=== PATIENT | male | born 1965 | race Caucasian/White ===

== ENCOUNTER → 2020-10-28 | Outpatient (REF) | payer SELFPAY ==
[2020-10-28 12:46] LABS: Potassium 5.6 mmol/L (3.5-5.1)
== END | disposition home or self-care (01) ==
LOC: LABSPEC 12:15
PROVIDERS: Visit Provider Internal Medicine Nephrology
DX: E87.5 Hyperkalemia (principal)
CPT/HCPCS: 84132

== ENCOUNTER 2021-08-14 06:49 | Emergency (ER) | payer MEDICAID, SELFPAY ==
[2021-08-14] VITALS (9 sets, daily range): BP systolic 110–192; BP diastolic 57–136; PULSE 86–104; RESP 16–26; TEMP 36.2; O2SAT 92–98; BMI 26.2
--- NOTE | 2021-08-14 06:53 | NURSING ---
NO OLD EKGS
--- NOTE | 2021-08-14 06:55 | CT_ITS ---
STUDY: CT BRAIN WITHOUT CONTRAST REASON FOR EXAM: Male, 56 years old. GCS 1, dilated pupils RADIATION DOSAGE (If Supplied By Facility): CTDIvol = ( 44.99 ) mGy, DLP = ( 796.11 ) mGycm TECHNIQUE: Transaxial CT imaging of the brain was performed without administration of intravenous contrast material. Individualized dose optimization techniques were used for this CT. COMPARISON: No relevant priors. FINDINGS: Normal soft tissue structures. Normal calvarium. Normal size ventricles and extra-axial spaces for the patient''s age. Normal white matter tracts of the cerebral hemispheres. Normal basal ganglia and thalami. Normal brainstem. Normal cerebellum. There is a large acute right-sided subdural hematoma measuring up to 2.0 cm thick surrounding the right frontal and parietal lobes with a small amount of associated subarachnoid hemorrhage. There is significant mass effect and edema of the right hemisphere as well as 2 cm of [id number] midline shift (subfalcine herniation). There are no findings of an acute ischemic infarction. Normal visualized paranasal sinuses. CT/Brain/Head without Contrast IMPRESSION: Large acute right-sided subdural hematoma with associated subarachnoid hemorrhage with mass effect on the right hemisphere and right to left midline shift (subfalcine herniation). N.B. : The above Results were Read Back by Tony White MD to Vernon Barroso MD, and understanding confirmed on 08/14/2021 08:03:11 (ET). Electronically Signed: Tony White MD at 8:04 EDT Tel , Service support ,
--- NOTE | 2021-08-14 06:55 | EKG12_ITS ---
Test Reason : UNRESPONSIVE Blood Pressure : / mmHG Vent. Rate : 090 BPM Atrial Rate : 090 BPM P-R Int : 152 ms QRS Dur : 102 ms QT Int : 348 ms P-R-T Axes : 034 107 -01 degrees QTc Int : 425 ms Sinus rhythm with occasional Premature ventricular complexes and Premature atrial complexes Otherwise normal ECG Confirmed by LAURO SERNA, MARYJO ([id number]), editor in chief CINDY VEGA ([id number]) on 08/20/2021 9:24:42 A M Referred By: LUCAS Confirmed By:LORETTA RESTREPO MD
--- NOTE | 2021-08-14 06:56 | RAD_ITS ---
STUDY: X-RAY CHEST REASON FOR EXAM: Male, 56 years old. Intubation TECHNIQUE: Single AP portable view of the chest. COMPARISON: None. FINDINGS: Endotracheal tube with the tip approximately 5 cm above the zina. Nasogastric tube with the tip below the diaphragm. The patchy alveolar opacities in both lungs consistent with bilateral pneumonia. There is no demonstrated pleural abnormality. There is moderate cardiac enlargement. Normal mediastinum and berna. Normal visualized pulmonary arteries. Normal visualized aortic arch and descending thoracic aorta. Normal visualized thoracic spine. Normal visualized ribs, clavicles, and shoulders. There is no demonstrated abnormality of the visualized soft tissue structures of the upper abdomen. RAD/Chest 1 View (Portable) IMPRESSION: 1. Endotracheal tube with the tip above the zina. 2. Nasogastric tube with the tip below the diaphragm. 3. Patchy bilateral pneumonia. 4. Cardiomegaly. Electronically Signed: Tony White MD at 7:48 EDT Tel , Service support ,
[2021-08-14] MEDS: Rocuronium Bromide 50 MG/5 ML Vial 78 MG IV (07:05)
[2021-08-14] MEDS: Etomidate 20 MG/10 ML Vial IV (07:05)
--- NOTE | 2021-08-14 07:07 | EKG12_ITS ---
Test Reason : UNRESPONSIVE Blood Pressure : / mmHG Vent. Rate : 114 BPM Atrial Rate : 114 BPM P-R Int : 150 ms QRS Dur : 100 ms QT Int : 326 ms P-R-T Axes : 062 106 010 degrees QTc Int : 449 ms Sinus tachycardia with frequent Premature ventricular complexes T wave abnormality, consider inferior ischemia Abnormal ECG Confirmed by LAURO SERNA, MARYJO ([id number]), editor producer CINDY VEGA ([id number]) on 08/20/2021 9:25:52 A M Referred By: LUCAS Confirmed By:LORETTA RESTREPO MD
--- NOTE | 2021-08-14 07:08 | EX.ED.DYSGE1 ---
HPI History of Present Illness Chief Complaint: Unresponsive Informant: EMS Limited: coma Onset/Context/Timing Onset: Hours Context: Sudden Onset Timing: Continuous Quality: Patient reported feeling anxious after heparin was pushed prior to dialysis Current Severity: Severe Maximum Severity: Severe Worsened by: Unknown Relieved by: Nothing Associated Symptoms Associated Symptoms: Patient arrived unresponsive. Narrative Narrative: Patient with end-stage renal disease on hemodialysis. Liver failure. He is a full code per paramedics. History is limited since he has altered sensorium. Prior similar symptoms: No Recent Illness/Hospitalization: No PFSH PFSH Medical History unable to obtain unable to obtain Allergy/AdvReac Type Severity Reaction Status Date / Time Iodinated Contrast Media AdvReac PT UNABLE Verified 08/14/21 07:02 [DYEE] TO RESPOND-NEEDS F/U Penicillins [PCN] AdvReac PT UNABLE Verified 08/14/21 07:03 TO RESPOND-NEEDS F/U prednisone AdvReac PT UNABLE Verified 08/14/21 07:02 TO RESPOND-NEEDS F/U Family History unable to obtain unable to obtain Surgical History unable to obtain unable to obtain Social History (Updated 08/14/21 @ 07:[address] Vernon Barroso MD) household members: none Smoking Status: Current every day smoker tobacco type: cigarettes ROS ROS ED Review of Systems ROS Unobtainable: due to mental status EXAM Physical Exam Const Vital Signs: 08/14/21 06:50 08/14/21 07:01 08/14/21 07:06 Temperature 97.2 F L Temperature Source Temporal Pulse Rate 94 86 Respiratory Rate 26 H Respiratory Effort Labored Accessory Muscle Use Respiratory Pattern Gasping Blood Pressure 174/123 H Blood Pressure Mean 140 Pulse Ox 96 98 Oxygen Delivery Method Room Air Ambu-Bag 08/14/21 07:10 08/14/21 07:49 08/14/21 08:07 Temperature Temperature Source Pulse Rate 104 H 99 Respiratory Rate 18 16 Respiratory Effort Respiratory Pattern Blood Pressure 192/136 H 157/93 H 149/81 H Blood Pressure Mean 154 114 103 Pulse Ox 92 94 Oxygen Delivery Method Ambu-Bag Ambu-Bag 08/14/21 08:18 Temperature Temperature Source Pulse Rate 101 H Respiratory Rate 20 H Respiratory Effort Respiratory Pattern Blood Pressure 141/72 H Blood Pressure Mean 95 Pulse Ox 94 Oxygen Delivery Method Mechanical Ventilator Positive well nourished and well developed General Appearance ED: well developed, pallor and other Patient appears jaundiced. HEENT Reports TM's clear and dry mucous membranes Tympanic Membrane ED: Yes TM's clear Mouth ED: Yes dry mucous membranes Mouth: dry mucous membranes Eyes Negative for PERRL or EOMs intact bilaterally Eyes Narrative: Pupils are 5 mm and nonreactive General Eye ED: Yes pale conjunctiva and scleral icterus Neck no lymphadenopathy, supple and No no JVD Neck Narrative: JVD noted Resp No normal respiratory effort and No clear to auscultation bilaterally Resp Narrative: Patient with labored snoring respiration. Cardio regular rate, regular rhythm and no murmurs GI normal to inspection, nondistended, normoactive bowel sounds Palpation: soft Neuro No oriented x3 Sensorium / Orientation: Negative for alert Psych Negative for mental status grossly normal Skin No no rashes or lesions noted General Skin Exam: jaundice and pallor Wounds: wounds noted MDM MDM MDM Narrative Medical decision making narrative: With complaint of headache after heparin and unresponsiveness with dilated nonreactive pupils suspect patient has intracranial bleed. Protamine was ordered. I spoke with the nurse at dialysis unit. He received 4000 units of heparin IV push. Patient was intubated by RSI technique. He received 20 mg of etomidate followed by 75 mg of rocuronium. Right external jugular line was placed by nm. Stat CT of the head was obtained to rule out/confirm intracranial bleed. Because there is concern for intracranial bleed with significant elevation of blood pressure Cardene drip was started. Goal is systolic of 140. Blood work was obtained to assess for coagulopathy, anemia, electrolyte abnormality. After intubation patient was having narrow complex tachycardia of 150. Twelve-lead EKG reveals sinus tachycardia of 114 with frequent premature ventricular beats. RI interval is 150 ms. QS duration 100 ms. QT duration is [address] Carbone the neuro game attendant at [facility] who accepted patient. He requested systolic less than 140. Patient has rhythmic movement of his head. Uncertain whether the this is a seizure. 4 mg of Ativan was ordered. If the rhythmic movement ceases will start Keppra. Lab Data Attestation: I reviewed the patient's lab results. Lab results narrative: PTT is elevated due to the heparin bolus. White count is elevated 16.4 thousand with slight shift/demargination. Creatinine is elevated at 10.8 with a BUN 87. Patient has end-stage renal failure on hemodialysis. Labs: Laboratory Results - last 24 hr 08/14/21 08/14/21 08/14/21 07:00 07:00 07:00 WBC 16.4 H RBC 4.87 Hgb 15.2 Hct 46.7 MCV 95.9 H MCH 31.2 MCHC 32.5 RDW Std Deviation 57.5 H RDW Coeff of Davide 16.4 H Plt Count 265 MPV 10.7 Immature Gran % (Auto) 1.500 H Neut % (Auto) 76.4 H Lymph % (Auto) 8.2 L [place] % (Auto) 10.4 H Eos % (Auto) 2.7 Baso % (Auto) 0.8 Absolute Neuts (auto) 12.6 H Absolute Lymphs (auto) 1.34 Nucleated RBC % 0 Diff Path Review May foll PT 14.9 INR 1.2 APTT 67.8 H Sodium 135 L Potassium 4.8 Chloride 92 L Carbon Dioxide 28.0 Anion Gap 15 BUN 87 H Creatinine 10.80 H* Estim Creat Clear Calc 8.58 Est GFR (MDRD) Af Amer 6 L Est GFR (MDRD) Non-Af 5 L BUN/Creatinine Ratio 8.1 L Glucose 149 H Lactic Acid Calcium 10.0 Total Bilirubin 0.60 AST 21 ALT 21 Alkaline Phosphatase 90 Troponin I High Sens 48 Total Protein 7.7 Albumin 3.8 Globulin 3.9 Albumin/Globulin Ratio 1.0 08/14/21 07:00 WBC RBC Hgb Hct MCV MCH MCHC RDW Std Deviation RDW Coeff of [place] Plt Count MPV Immature Gran % (Auto) Neut % (Auto) Lymph % (Auto) [place] % (Auto) Eos % (Auto) Baso % (Auto) Absolute Neuts (auto) Absolute Lymphs (auto) Nucleated RBC % Diff Path Review PT INR APTT Sodium Potassium Chloride Carbon Dioxide Anion Gap BUN Creatinine Estim Creat Clear Calc Est GFR (MDRD) Af Amer Est GFR (MDRD) Non-Af BUN/Creatinine Ratio Glucose Lactic Acid 3.0 H* Calcium Total Bilirubin AST ALT Alkaline Phosphatase Troponin I High Sens Total Protein Albumin Globulin Albumin/Globulin Ratio Radiography Chest X-Ray - ED: 1 View (Single view chest x-ray reveals interstitial fluffiness consistent with fluid overload. Endotracheal tube is in proper position. OG is in proper position.) and Read by ED Physician (KUB was obtained and confirms placement of orogastric tube. The chest x-ray and KUB was interpreted by me at 0718.) Diagnostic Testing: Radiology Impression Brain CT 08/14/21 06:55 IMPRESSION: Large acute right-sided subdural hematoma with associated subarachnoid hemorrhage with mass effect on the right hemisphere and right to left midline shift (subfalcine herniation). N.B. : The above Results were Read Back by Tony White MD to Vernon Barroso MD, and understanding confirmed on 08/14/2021 08:03:11 (ET). Electronically Signed: Tony White MD at 8:04 EDT Tel , Service support , ADDENDUM: 08/14/21 0811 IMPRESSION: Large acute right-sided subdural hematoma with associated subarachnoid hemorrhage with mass effect on the right hemisphere and right to left midline shift (subfalcine herniation). N.B. : The above Results were Read Back by Tony White MD to Vernon Barroso MD, and understanding confirmed on 08/14/2021 08:03:11 (ET). Electronically Signed: Tony White MD at 8:04 EDT Tel , Service support , Chest X-Ray 08/14/21 06:56 IMPRESSION: 1. Endotracheal tube with the tip above the zina. 2. Nasogastric tube with the tip below the diaphragm. 3. Patchy bilateral pneumonia. 4. Cardiomegaly. Electronically Signed: Tony White MD at 7:48 EDT Tel , Service support , Rhythm Strip Rhythm Strip: Sinus Tach Rate: 150 Ectopy: None EKG Initial EKG: Attestation: I personally reviewed and interpreted this EKG as follows: Interpretation: Sinus Rhythm (First EKG reveals sinus rhythm with a ventricular rate of 90 and what appears to be premature atrial beats as well as premature ventricular beats. RI interval is 150 ms. Cures duration 102 ms. QT is 348 ms. [place] is normal. He has evidence of LVH.) Critical Care Time Critical Care Time: Yes Critical care time (excluding procedures): 30-74 minutes (33 minutes), Including time spent: (History, physical, documentation and initiation of life saving measures), Discussing w/Patient &/or Family/[employer] Supervisor (Spoke with his nurse at dialysis to determine amount of heparin administered), Discussing w/Consultants, Arranging Admission or Transfer and Performing Direct Patient Care at Bedside Discharge Plan Triage Chief Complaint: Unresponsive ED Provider: Vernon Barroso Dx/Rx/DC Orders Clinical Impression: Nontraumatic subdural hematoma, Decerebrate posture, Hypertensive emergency, Fluid overload, unspecified, End-stage renal disease on hemodialysis, Acidosis, lactic Primary Care Provider: Care Physician,No Primary Referrals: Care Physician,No Primary [Primary Care Provider] - Disposition Disposition: Acute Care Hospital Discharge Location: [facility] Discharge Date/Time: 08/14/21 09:47
[2021-08-14 07:20] LABS: Absolute Lymphocyte Count 1.34 X10^3/uL (0.83-4.51); Absolute Neutrophil Count 12.6 X10^3/uL (2.0-7.7); Basophil# 0.13 X10^3/uL; Basophil% 0.8 % (0-1); Eosinophil# 0.45 X10^3/uL; Eosinophils% 2.7 % (0-5); Hematocrit 46.7 % (40-54); Hemoglobin 15.2 g/dL (13.0-16.5); Lymphocyte # 1.34 X10^3/ul (0.83-4.51); Lymphocyte % 8.2 % (19-41); Mean Corp Hgb Conc 32.5 g/dL (32-36); Mean Corpuscular Hgb 31.2 pg (27.0-32.0); Mean Corpuscular Volume 95.9 fL (80-94); Mean Platelet Vol. 10.7 fl (6.2-12.0); Monocyte# 1.71 X10^3/uL; Monocyte% 10.4 % (0-10); NRBC Flagged by Analyzer 0 % (0-5); Neutrophil # 12.55 X10^3/uL (2.7-7.7); Neutrophil % 76.4 % (47-70); POSITIVE DIFFERENTIAL YES; Platelet Count 265 K/mm3 (150-450); RBC Distribution Width CV 16.4 % (11.6-14.6); RBC Distribution Width SD 57.5 fl (35.1-43.9); Red Blood Count 4.87 M/mm3 (4.6-6.2); White Blood Count 16.4 K/mm3 (4.4-11.0)
--- NOTE | 2021-08-14 07:21 | ED.RN ---
0700 cardene drip started at 5mg/hr. Called Sebastian at [facility] to troubleshoot why I cannot chart it off, he did some troubleshooting but was unable to place order to where i can chart. 0720: BP 488/118 Cardene drip increased to 10mg/hr.
[2021-08-14 07:22] LABS: Differential Indicated SCAN CRITERIA MET
[2021-08-14] MEDS: Propofol 10MG/Ml 1,000 MG/100 ML Bottle 5.3 MG CONT INF (07:23)
[2021-08-14 07:30] LABS: International Normalized Ratio 1.2; Prothrombin Time (Protime)PT. 14.9 SECONDS (11.7-14.9)
[2021-08-14 07:32] LABS: Partial Thromboplast Time 67.8 Seconds (24.1-36.2)
--- NOTE | 2021-08-14 07:41 | ED.RN ---
THIS NURSE ATTEMPTED TO CONTACT CHELO MICHAUD [phone] PHONE NUMBER NO LONGER IN SERVICE
[2021-08-14 07:46] LABS: AST(SGOT) 21 U/L (15-37); Alanine Aminotransfer ALT/SGPT 21 U/L (16-61); Albumin, Serum 3.8 g/dL (3.2-5.0); Alkaline Phosphatase 90 U/L (45-117); Anion Gap 15 (5-15); BUN 87 mg/dL (7-18); BUN/Creat Ratio 8.1 RATIO (10-20); Chloride 92 mmol/L (98-107); EST Glomerular Filtration Rate 5 mL/min (>60); Est Glom Filt Rate - Afr Amer 6 mL/min (>60); Estimated Creatinine Clearance 8.58 ml/min; Globulin 3.9 g/dL (2.2-4.2); Glucose 149 mg/dL (74-106); Potassium 4.8 mmol/L (3.5-5.1); Protein, Total 7.7 g/dL (6.4-8.2); Sodium Level 135 mmol/L (136-145); Troponin-I HS 48 pg/mL (3.0-78.0)
[2021-08-14] MEDS: Protamine Sulfate 50 MG/5 ML Vial 40 MG IV (07:47)
--- NOTE | 2021-08-14 07:56 | ED.RN ---
Pharmacy aware that Cardine is not able to be documented in MAR for titration. Titrated to 15mg/hr.
--- NOTE | 2021-08-14 08:10 | NURSING ---
[facility]. ETA IS 45 MIN
--- NOTE | 2021-08-14 08:16 | ED.RN ---
this rn talked with pharmacy. aware unable to titrate or chart on nicardipine. at this time at top of titration
--- NOTE | 2021-08-14 08:18 | NURSING ---
DIOGO MOREIRA [id number] NURSE TO NURSE [phone]
--- NOTE | 2021-08-14 08:22 | ED.RN ---
cardene drip titrated down to 10 mg per hour
[2021-08-14] MEDS: LORazepam 2 MG/ML Syringe 4 MG IV (08:38)
--- NOTE | 2021-08-14 08:42 | ED.RN ---
NICARDEPINE DECREASED TO 5MG /HR
--- NOTE | 2021-08-14 08:51 | ED.RN ---
CARDENE STOPPED AT THIS TIME. BP 110/57
--- NOTE | 2021-08-14 08:58 | ED.RN ---
SPOKE WITH FAMILY MEMBER TOMMY MICHAUD MADE AWARE SHE IS BEING TRANSFERED [phone]
[2021-08-14 11:15] LABS: Reflex Lactate? Y
[2021-08-14 12:04] LABS: Pathologist Review Reviewed
== END 2021-08-14 09:47 | disposition short-term general hospital (02) ==
PROVIDERS: Emergency Provider Emergency Medicine
DX: I62.00 Nontraumatic subdural hemorrhage, unspecified (principal); I60.9 Nontraumatic subarachnoid hemorrhage, unspecified; I16.1 Hypertensive emergency; N18.6 End stage renal disease; Z99.2 Dependence on renal dialysis; K72.90 Hepatic failure, unspecified without coma; E87.2 Acidosis; I49.3 Ventricular premature depolarization; F17.210 Nicotine dependence, cigarettes, uncomplicated
CPT/HCPCS: 31500; 70450; 71045; 80053; 83605; 84484; 85025; 85610; 85730; 87426; 93005; 94002; 96365; 96375; 99251; 99285; A4216; G0463